=== PATIENT | female | born 1945 | race Caucasian/White ===

== ENCOUNTER 2021-01-11 18:33 | Emergency (ER) | payer MEDICARE, BC ==
[~2021-01-11] VITALS: Ht 167.6 cm; Wt 79.4 kg
[~2021-01-11 18:33] MED LIST: AZITHROMYCIN500 MG PO; PSEUDOEPHEDRINE60 MG PO
[2021-01-11] MEDS ORDERED: NAPROXEN500 MG PO (21:33)
== END 2021-01-11 22:05 | disposition home or self-care (01) ==
LOC: ED 18:33
DX: I80.01 Phlebitis and thrombophlebitis of superficial vessels of right lower extremity (principal); Z88.0 Allergy status to penicillin; Z88.5 Allergy status to narcotic agent
CPT/HCPCS: 93971; 99283-25

== ENCOUNTER 2021-06-17 12:28 | Emergency (ER) | payer MEDICARE, BC ==
[~2021-06-17] VITALS: Ht 167.6 cm; Wt 79.4 kg
[~2021-06-17 12:28] MED LIST changes: +NAPROXEN500 MG PO
--- NOTE | 2021-06-18 07:45 | EKG ---
[facility] [address] [place], [place] [address] Signed Normal sinus rhythm Inferior infarct , age undetermined Abnormal ECG No previous ECGs available Confirmed by DANAE GIBSON MD ([id number]) on 06/18/2021 7:45:26 AM Electronically Signed By: DANAE GIBSON MD 06/18/21 0745 PATIENT NAME: SOCORRO SOL Samra Electrocardiogram DATE OF : 43 PHYSICIAN: DANAE GIBSON MD REPORT #: [id number] REPORT IS CONFIDENTIAL AND NOT TO BE RELEASED WITHOUT AUTHORIZATION
== END 2021-06-17 17:53 | disposition home or self-care (01) ==
LOC: ED 12:28
DX: U07.1 COVID-19 (principal); Z23 Encounter for immunization; S82.831A Other fracture of upper and lower end of right fibula, initial encounter for closed fracture; W18.39XA Other fall on same level, initial encounter; F17.200 Nicotine dependence, unspecified, uncomplicated; Z88.0 Allergy status to penicillin; Z88.8 Allergy status to other drugs, medicaments and biological substances; Z88.5 Allergy status to narcotic agent
CPT/HCPCS: 71045; 73610; 80048; 85025; 93005; 93010; 96374; 99284-25; C9803; J2405; J7030; M0243; Q0244; U0003

== ENCOUNTER 2021-07-03 11:54 | Emergency (ER) | payer MEDICARE, BC ==
[~2021-07-03] VITALS: Ht 167.6 cm; Wt 95.7 kg
--- OUTSIDE RECORDS SUMMARY | 2021-07-03 12:02 | XMS ---
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 - 2 Visits in 30 Days CARE PROVIDERS KHADIJAH MOCK Student in an Organized Health Care [facility] Education/Training Program PHONE: [phone] Hu has no Care Guidelines for this patient. ERoslyn. VISIT COUNT (12 MO.) 3 [facility] TOTAL 3 NOTE: Visits indicate total known visits. ED/UCC VISIT TRACKING (12 MO.) 07/03/2021 11:55 [facility] [place] TYPE: Emergency COMPLAINT: - L ARM SWELLING 06/17/2021 12:29 [facility] [place] TYPE: Emergency COMPLAINT: - SYNCOPE DIAGNOSES: - Other fracture of upper and lower end of right fibula, initial encounter for closed fracture - Allergy status to narcotic agent - COVID-19 - Syncope and collapse - Other fall on same level, initial encounter - Allergy status to other drugs, medicaments and biological substances - Allergy status to penicillin - Nicotine dependence, unspecified, uncomplicated - Encounter for immunization 01/11/2021 18:34 [facility] [place] TYPE: Emergency COMPLAINT: - RT LEG PAIN/ NON INJURY DIAGNOSES: - Allergy status to narcotic agent - Phlebitis and thrombophlebitis of superficial vessels of right lower extremity - Allergy status to penicillin - Pain in right lower leg INPATIENT VISIT TRACKING (12 MO.) No inpatient visits to display in this time frame [email or web address]
[2021-07-03] MEDS ORDERED: ELIQUIS5 MG PO (18:22)
== END 2021-07-03 18:53 | disposition home or self-care (01) ==
LOC: ED 11:54
DX: I82.622 Acute embolism and thrombosis of deep veins of left upper extremity (principal); F17.200 Nicotine dependence, unspecified, uncomplicated; Z88.0 Allergy status to penicillin; Z88.5 Allergy status to narcotic agent; Z88.8 Allergy status to other drugs, medicaments and biological substances
CPT/HCPCS: 80048; 85025; 93971; 99284-25

== ENCOUNTER 2023-06-12 07:51 | Inpatient (IN) | payer MEDICARE, BC ==
[~2023-06-12] VITALS: Ht 167.6 cm; Wt 101.6 kg
[~2023-06-12 07:51] MED LIST changes: +ELIQUIS5 MG PO
--- OUTSIDE RECORDS SUMMARY | 2023-06-12 07:53 | XMS ---
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 Care History Medical/Surgical 07/10/2021 [facility] \R\- NO PCP LETTER SENT WITH CLINIC ONI Barakat VISIT COUNT (12 MO.) 1 [facility] H. TOTAL 1 NOTE: Visits indicate total known visits. ED/UCC VISIT TRACKING (12 MO.) 06/12/2023 07:51 [facility] [place] TYPE: Emergency COMPLAINT: - STROKE INPATIENT VISIT TRACKING (12 MO.) No inpatient visits to display in this time frame [email or web address]
[2023-06-12 08:05] LABS: BASOPHILS 1.8 % (0-2); EOSINOPHILS 1.7 % (0-6); HEMOGLOBIN 13.5 g/dL (12.0-18.0); LYMPHOCYTES 30.3 % (24-44); MCH 29.6 (27-36); MCHC 32.3 g/dl (30-36); MCV 91.8 fl (81-99); MONOCYTES 5.3 % (0-12); NEUTROPHILS 60.9 % (39-80); PLATELET COUNT 198 K/uL (140-440); RBC 4.57 M/ul (4.3-5.7); RDW 15.9 (10.5-15.0)
[2023-06-12 08:39] LABS: ALBUMIN 3.2 g/dL (3.4-5.0); ALBUMIN/GLOBULIN RATIO 0.84 (1.1-2.4); ANION GAP 15.4 (7-21); BILIRUBIN, TOTAL 0.3 ng/dL (0.2-1.0); BUN/CREATININE RATIO 8.77 (6.0-28.6); CALCIUM 8.9 mg/dL (8.5-10.1); CREATININE, SERUM 1.71 mg/dL (0.55-1.02); POTASSIUM 4.4 mmol/L (3.5-5.1)
[2023-06-12 11:33] VITALS: BP 171/88
--- NOTE | 2023-06-12 12:36 | NUR ---
PATIENT ADMISSION COMPLETE AND DOCUMENTED IN THE CHART. PATIENT WITH TWO FAMILY MEMBERS AT THE BEDSIDE. PATIENT LUNCH TRAY SET UP. PATIENT STATED NO FURTHER NEEDS AT THIS TIME. CALL LIGHT AND PERSONAL BELONGINGS ARE WITHIN REACH.
--- NOTE | 2023-06-12 13:39 | NUR ---
SPOKE TO PATIENT AND FAMILY ABOUT THE DISCHARGE PLAN. PATIENT LIVES WITH HER DAUGHTER AND HAS A GRANDSON WHO IS VERY HELPFUL WHEN NEEDED. PATIENT CAN DO HER OWN ADLS AND DOES NOT USE ANY DME. PATIENT HAS NO MONEY ISSUES. PATIENT IS ABLE TO GO UP STAIRS WITHOUT DIFFICULTIES. PATIENT COMPLAINS THAT HER LEFT HAND FEELS LIKE IT HAS SL. WEAKNESS. PATIENT HAS FRIENDS THAT ARE AVAILABLE TO HELP NEEDED. PATIENT DOES NOT WANT PLACEMENT AND DOES NOT NEED HELP AT HOME. STRUCTURAL STEEL WORKER HELPER WILL FOLLOW PATIENT'S PROGRESS AND THE NEED FOR CASE MANAGEMENT'S HELP.
[2023-06-12 14:44] VITALS: BP 167/72
--- NOTE | 2023-06-12 16:02 | NUR ---
PATIENT ORTHOSTATIC BLOOD PRESSURE COMPLETE AND DOCUMENTED IN THE CHART. NEURO CHECKS COMPLETE. PATIENT IS ALERT AND ORIENTED TIMES FOUR. LEFT SIDE LOWER EXTREMITY DRIFTS TO THE BED IMMEDIATELY AFTER LIFTING. LEFT UPPPER EXTREMITY WITH MINIMAL DRIFT BUT ABLE TO PULL BACK. PATIENT WORDS NOT SLURRED AND EASY TO UNDERSTAND. PATIENT STATED NO PAIN AT THIS TIME. LEFT AC REMOVED DUE THE PATIENT REPORTING PAIN. PATIENT WITH NO COMPLAINTS OF NAUSEA OR DIZZINESS. PATIENT WITH TWO FAMILY MEMBERS AT THE BEDSIDE. PATIENT AND FAMILY STATED NO FURTHER NEEDS AT THIS TIME. CALL LIGHT AND PERSONAL BELONGINGS ARE WITHIN REACH.
[2023-06-12] MEDS ORDERED: ALBUTEROL2.5 MG/3 M INH (16:46)
[2023-06-12] MEDS ORDERED: ALLEGRA ALLERG180 MG PO (17:03)
[2023-06-12] MEDS ORDERED: TYLENOL EXTRA500 MG PO (17:04)
[2023-06-12 17:42] VITALS: BP 142/99
--- NOTE | 2023-06-12 19:36 | NUR ---
REPORT RECEIVED FROM DAY SHIFT RN. PATIENT RESTING IN BED WITH EYES CLOSED. RESPIRATIONS EVEN AND UNLABORED. CALL LIGHT IN REACH.
[2023-06-12 19:51] VITALS: BP 150/88
--- NOTE | 2023-06-12 20:00 | NUR ---
CALL LIGHT ANSWERED. PATIENT UP TO BSC WITH 2P SBA AND FWW TO VOID. PATIENT BACK TO BED. VS AND I&Os OBTAINED AND RECORDED. ASSESSMENT COMPLETE. PATIENT REPORTS NO CURRENT PAIN. LUNG SOUNDS CLEAR BILAT. BOWEL TONES ACTIVE. PATIENT ABLE TO HOLD LEFT LEG UP FOR 8 SECONDS THEN DRIFTS. PATIENT ABLE TO HOLD LEFT ARM UP WITH SLIGHT DRIFT. GROUP UNDERWRITER STRENGTH EQUAL BILAT. PATIENT HAS NO FURTHER NEEDS. CALL LIGHT IN REACH. IV FLUSHED AND WNL.
--- NOTE | 2023-06-12 22:17 | NUR ---
PATIENT IN BED RESTING ON BACK WITH EYES CLOSED. RESPIRATIONS EVEN AND UNLABORED. CALL LIGHT IN REACH.
--- NOTE | 2023-06-12 22:29 | NUR ---
CALL LIGHT ANSWERED. PATIENT UP TO BSC WITH 2P SBA. PATIENT BACK TO BED. PATIENT HAS NO FURTHER NEEDS. CALL LIGHT IN REACH.
--- NOTE | 2023-06-13 00:23 | NUR ---
PATIENT IN BED RESTING ON BACK WATCHING TV. RESPIRATIONS EVEN AND UNLABORED. NO FURTHER NEEDS. CALL LIGHT IN REACH.
[2023-06-13 01:38] VITALS: BP 147/78
--- NOTE | 2023-06-13 01:40 | NUR ---
CALL LIGHT ANSWERED. PATIENT UP TO BSC WITH 2PA TO VOID. PATIENT BACK TO BED. VS AND I&Os OBTAINED AND RECORDED. ASSESSMENT COMPLETE. NEURO CHECK COMPLETE, SEE ASSESSMENT. PATIENT HAS NO FURTHER NEEDS. CALL LIGHT IN REACH.
[2023-06-13 05:18] LABS: BASOPHILS 0.7 % (0-2); EOSINOPHILS 0.1 % (0-6); HEMATOCRIT 42.4 % (35.0-50.0); HEMOGLOBIN 13.8 g/dL (12.0-18.0); LYMPHOCYTES 9.6 % (24-44); MCH 29.6 (27-36); MCHC 32.5 g/dl (30-36); MCV 91.2 fl (81-99); MONOCYTES 6.4 % (0-12); NEUTROPHILS 83.2 % (39-80); PLATELET COUNT 221 K/uL (140-440); RBC 4.65 M/ul (4.3-5.7); RDW 16.1 (10.5-15.0)
[2023-06-13 05:25] LABS: ANION GAP 16.1 (7-21); BUN/CREATININE RATIO 12.12 (6.0-28.6); CALCIUM 9.3 mg/dL (8.5-10.1); CREATININE, SERUM 1.65 mg/dL (0.55-1.02); POTASSIUM 4.1 mmol/L (3.5-5.1)
[2023-06-13 05:29] VITALS: BP 174/85
[2023-06-13 05:30] LABS: CHOLESTEROL/HDL RATIO 3.8
--- NOTE | 2023-06-13 05:31 | NUR ---
PT IN BED RESTING EYES CLOSED. VS OBTAINED. PT DENIES PX. STATES SHE HAS MORE FEELING/LESS NUMBNESS TO LT FOOT, LEG AND LT FINGERS. PT DENIES FURTHER NEEDS AT THIS TIME
--- NOTE | 2023-06-13 06:29 | NUR ---
CALL LIGHT ANSWERED. PATIENT UP TO BSC WITH MAX 2P SBA. PATIENT BACK TO BED. FRESH WATER PROVIDED. PATIENT HAS NO FURTHER NEEDS. CALL LIGHT IN REACH.
--- NOTE | 2023-06-13 07:24 | NUR ---
REPORT RECIEVED FROM BLANKET INSPECTOR TRENT ALMARAZ. PATIENT IS RESTING IN BED WITH EYES CLOSED. RESPIRATIONS ARE EVEN AND UNLABORED. CALL LIGHT AND PERSONAL BELONGINGS ARE WITHIN REACH.
--- NOTE | 2023-06-13 08:06 | NUR ---
SPOKE TO PATIENT ABOUT THE DISCHARGE PLAN. PATIENT DOES NOT WANT SNF AT THIS TIME. ALSO PATIENT DOES NOT THINK SHE NEEDS A WALKER. SPOKE WITH PATIENT ADOUT HELP AT HOME AND PATIENT STATES THAT HER DAUGHTER LIVES WITH HER AND WILL HELP WITH WHAT EVER THE PATIENT NEEDS. SLIPMAN WILL FOLLOW PATIENT CLOSELY TO MAKE SURE THAT PATIENT HAS A SAFE DISCHARGE. PATIENT STILL HAS MILD WEAKNESS IN HER LEFT LEG AND ARM. PATIENT IS NOT HAVING DIZZINESS AT THIS TIME AND IS FEELING BETTER THIS AM THAN YESTERDAY.
--- NOTE | 2023-06-13 08:40 | NUR ---
PATIENT 0800 AND 0900 MEDICATIONS ADMINISTERED PER THE EMAR. PATIENT FULL ASSESSMENT COMPLETE AND DOCUMENTED IN THE CHART. PATIENT STATED NO PAIN AT THIS TIME. PATIENT IS ALERT AND ORIENTED TIMES FOUR. MINIMAL DRIFT OF THE LEFT ARM AND LEFT LEG. PATIENT STATED THE LEFT SIDE OF THE BODY FEELS MORE DULL THAN THE RIGHT SIDE. PATIENT LUNG SOUNDS ARE CLEAR BILATERALLY IN ALL LUNG CARRION. HR IRREGULAR. RADIAL AND PEDAL PULSES ARE STRONG BILATERALLY. CAPILLARY REFILL IN THE UPPER AND LOWER EXTREMITIES IS LESS THAN 3 SECONDS. PATIENT BREAKFAST TRAY SET UP FOR THE PATIENT. IV SITE FLUSHED WELL WITH 10 ML NORMAL SALINE AND NO PAIN. DRESSING IS CLEAN, DRY, AND INTACT. PATIENT STATED NO FURTHER NEEDS AT THIS TIME. CALL LIGHT AND PERSONAL BELONGINGS ARE WITHIN REACH.
[2023-06-13 09:31] VITALS: BP 135/71
--- NOTE | 2023-06-13 10:57 | NUR ---
TALKED TO PT AND A SAFE DISCHARGE WOULD BE TO DISCHARGED TO SNF FOR REHAB. PATIENT IS OK ABOUT GOING TO SNF. PATIENT WILL GO TO [place] BECAUSE PATIENT'S GRANDSON WORKS AT [facility]. REFERRAL SENT TO [place].
--- NOTE | 2023-06-13 11:05 | NUR ---
PATIENT USED BEDSDIE COMMODE WITH TWO PERSON ASSIST AND A FRONT WHEELED WALKER. PATIENT THEN LAYING BACK IN BED AND RECEIVED THE ENOXAPARIN INJECTIONE. PATIENT DAUGHTER AT THE BEDSIDE. PATIENT STATED NO FURTHER NEEDS AT THIS TIME. CALL LIGHT AND PERSONAL BELONGINGS ARE WITHIN REACH.
--- NOTE | 2023-06-13 11:19 | NUR ---
UR NOTE MCG STROKE: ISCHEMIC (ISC) 06/12/23 MET CLINICAL INDICATIONS FOR ADMISSION TO INPATIENT CARE GL DAY 1
--- NOTE | 2023-06-13 14:01 | NUR ---
MS HOBSON. PT AND DAUGHTER EXHIBITED STRON EMOTIONAL AND RELATIONAL RESOURCES AND VERY LITTLE DSITRESS. RESPONSES TO SITUATION WERE CONGRUENT. PROVIDED SUPPORTIVE PRESENCE; FACILITATED STORY-TELLING AND PROCESSING OF SITUATION; PT AND DAUGHTER EXPRESSED HOPE. NO FOLLOW UP REQURIED AT THIS TIME.
[2023-06-13 14:32] VITALS: BP 131/71
[2023-06-13 17:48] VITALS: BP 151/71
--- NOTE | 2023-06-13 19:15 | NUR ---
REPORT RECIEVED FROM GISEL NEWMAN. BOARD UPDATED. pt RESTING IN THE BED. pt DENIES ANY NEEDS AT THIS TIME. CALL LIGHT WITHIN REACH.
--- NOTE | 2023-06-13 20:49 | NUR ---
used call light, up to BSC, 2PA/FWW, slightly unsteady, voided, back to bed, continues to need safety cuing on return. sammie own oral care at this time
--- NOTE | 2023-06-13 20:55 | NUR ---
pt is finished with oral cares, supplies tidied up for pt, no further needs at this time
[2023-06-13 21:12] VITALS: BP 160/88
--- NOTE | 2023-06-13 21:30 | NUR ---
ASSESSMENT AND VITAL SIGNS DONE. PURE WICK PLACED. A&O X4. NO NUMBNESS OR TINGLING. NO FACIAL DROOP. WATER REFRESHED. PURNIMA CARE DONE. pt DENIES ANY NEEDS AT THIS TIME. CALL LIGHT WITH IN REACH.
--- NOTE | 2023-06-13 23:51 | NUR ---
pt RESTING IN THE BED WITH EYES CLOSED. RR EVEN AND UNLABORED. NO S/SX OF OBVIOUS DISTRESS. CALL LIGHT WIHIN REACH.
--- NOTE | 2023-06-14 02:21 | NUR ---
pt RESTING IN BED WITH EYES CLOSED. PURE WICK IN PLACE. RR EVEN AND UNLABORED. NO S/SX OF OBVIOUS DISTRESS. CALL LIGHT WITHIN REACH.
--- NOTE | 2023-06-14 04:25 | NUR ---
pt IN BED RESTING WITH EYES CLOSED. PURE WICK IN PLACE. RR EVEN AND UNLABORED. NO S/SX OF OBVIOUS DISTRESS NOTED. CALL LIGHT WITHIN REACH.
[2023-06-14 05:36] VITALS: BP 149/79
[2023-06-14 05:43] LABS: BASOPHILS 0.8 % (0-2); EOSINOPHILS 0.5 % (0-6); HEMOGLOBIN 13.5 g/dL (12.0-18.0); MCH 29.5 (27-36); MCHC 32.2 g/dl (30-36); MCV 91.7 fl (81-99); MONOCYTES 8.9 % (0-12); NEUTROPHILS 66.8 % (39-80); PLATELET COUNT 200 K/uL (140-440); RBC 4.58 M/ul (4.3-5.7); RDW 16.2 (10.5-15.0)
[2023-06-14 06:04] LABS: ALBUMIN/GLOBULIN RATIO 0.88 (1.1-2.4); ANION GAP 13.1 (7-21); BILIRUBIN, TOTAL 0.4 ng/dL (0.2-1.0); BUN/CREATININE RATIO 15.78 (6.0-28.6); CALCIUM 8.7 mg/dL (8.5-10.1); CREATININE, SERUM 1.71 mg/dL (0.55-1.02); POTASSIUM 4.1 mmol/L (3.5-5.1); PROTEIN, TOTAL 6.4 g/dL (6.4-8.2)
--- NOTE | 2023-06-14 06:13 | NUR ---
ASSESSMENT AND VITAL SIGNS DONE. PURE WICK REMOVED. pt A&0 X4. pt HAS LEFT SIDED TINGLING IN HER ARM AND LEG AND MINIMAL DRIFT OF LEFT LEG. NO OTHER NEEDS AT THIS TIME. CALL LIGHT WITHIN REACH.
--- NOTE | 2023-06-14 06:46 | EKG ---
[facility] [address] [place] [address] Signed sinus rhythm with frequent pvc Right bundle branch block Abnormal ECG When compared with ECG of 17-JUN-2021 12:51, compared to previous, RBBB and pvc's now present Confirmed by TANJA TIRADO MD ([id number]) on 06/14/2023 6:46:27 AM Electronically Signed By: TANJA TIRADO 06/14/23 0646 PATIENT NAME: SOCORRO SOL SEBLE Electrocardiogram DATE OF : 43 PHYSICIAN: TANJA TIRADO REPORT #: [id number] REPORT IS CONFIDENTIAL AND NOT TO BE RELEASED WITHOUT AUTHORIZATION
--- NOTE | 2023-06-14 07:05 | NUR ---
VIDEO PRESENTATION OPERATOR WILL SEND UPDATES TO [facility]. PATIENT LIVES WITH DAUGHTER AND DAUGHTER FEELS LIKE SHE CANNOT TAKE CARE OF MOTHER AT THIS TIME.WILL EXPLORE THIS ISSUE MORE TODAY WHEN DARIUS COMES TO THE HOSPITAL TO VISIT. [facility] IS PATIENT'S CHOICE OF SNF BECAUSE GRANDSON WORKS AT [facility].
--- NOTE | 2023-06-14 08:05 | NUR ---
PATIENT 0800 AND 0900 MEDICATIONS ADMINISTERED PER THE EMAR. PATIENT EXPRESSED UNDERSTANDING ABOUT THE MEDICATIONS SHE IS TAKING AT THE HOSPITAL. PATIENT DAUGHTER AT THE BEDSIDE. FULL ASSESSMENT COMPLETE AND DOCUMENTED IN THE CHART. PATIENT LUNG SOUNDS ARE CLEAR BILATERALLY IN ALL LUNG CARRION. PATIENT ON ROOM AIR. HEART SOUNDS IRREGULAR. RADIAL AND PEDAL PULSES ARE STRONG BILATERALLY. CAPILLARY REFILL IN THE UPPER AND LOWER EXTREMITIES IS LESS THAN 3 SECONDS BILATERALLY. BOWEL TONES ARE ACTIVE IN ALL FOUR QUADRANTS. PATIENT ATE ABOUT 25% OF BREAKFAST. PUREWICK USED ONLY AT NIGHT. PUREWICK NOT IN PLACE. BILATERAL SHINS ARE DANG AND DRY. PATIENT LAST BOWEL MOVEMENT WAS ON 06/12/23. PATIENT IS ALERT AND ORIENTED TIMES FOUR. LEFT ARM AND LEFT LEG DRIFT MINIMAL. PATIENT IS SITTING UPRIGHT IN THE RECLINER. PATIENT AND FAMILY STATED NO FURTHER NEEDS AT THIS TIME. CALL LIGHT AND PERSONAL BELONGINGS ARE WITHIN REACH.
[2023-06-14 09:06] VITALS: BP 128/59
--- NOTE | 2023-06-14 10:01 | NUR ---
MS ROUNDS. NO VISIT. PHYSICAL THERAPY IN WITH PATIENT. PROVIDED SILENT PRAYER.
--- NOTE | 2023-06-14 10:50 | NUR ---
PATIENT IS SITTING UPRIGHT IN BED WITH EYES CLSOED AND RESPIRATIONS ARE EVEN AND UNLABORED. CALL LIGHT AND PERSONAL BELONGINGS ARE WITHIN REACH.
--- NOTE | 2023-06-14 12:38 | NUR ---
WENT INTO PATIENTS ROOM TO HELP PATIENT TO THE BEDSIDE COMMODDE. WHEN PATIENT SAT ON THE EDGE OF THE BED, PATIENT STATED FEELING WEIRD AND "FOGGED IN ". PATIENT REMAINED SITTING AT THE EDGE OF THE BED. VITAL SIGNS TAKEN AND WERE STABLE. TOLD PAATIENT TO TAKE DEEP BREATHS. PATIENT THEN STATED SAID [facility] AND TWO PERSON ASSIST. PATIENT VOIDED 100 ML YELLOW URINE. PATIENT GOT BACK TO BED AND STATED THE LEFT SIDE OF HER FACE FEELS NUMB. NEURO ASSESSMENT COMPLETE AND NO NEW DEFICITS NOTED. PATIENT NOW SITTING UPRIGHT IN BED WITH HER DAUGHTER AT THE BEDSIDE. CHARGE NURSE AND NOTIFIED.
--- NOTE | 2023-06-14 13:03 | NUR ---
UR NOTE MCG STROKE: ISCHEMIC (ISC) 06/13/23 VARIANCE GL DAY 2 06/14/23 MET GL DAY 2
[2023-06-14 13:10] VITALS: BP 126/60
--- NOTE | 2023-06-14 13:37 | NUR ---
SPOKE TO VICKIE AT [facility] AND PATIENT WILL GO TO [facility] SATURDAY. PATIENT AND DAUGHTER UPDATED ON THE DISCHARGE PLAN.PATIENT'S DAUGHTER REMAINS AT BEDSIDE AND IS VERY HELPFUL TO HER MOTHER.
--- NOTE | 2023-06-14 15:32 | NUR ---
Wheelchair Van scheduled for 06/15/23 at 1030 to take patient from hospital to [facility].
--- NOTE | 2023-06-14 15:32 | NUR ---
SPOKE TO THE PATIENT ABOUT THE DISCHARGE PLAN. PATIENT WILL BE DISCHARGED TO [facility] IN THE AM FOR SNF/REHAB.
[2023-06-14] MEDS ORDERED: CLOPIDOGREL75 MG PO (15:41)
--- NOTE | 2023-06-14 15:41 | NUR ---
Patient notified wheelchair van will arrive at 1030 to transport her to [facility].
[2023-06-14] MEDS ORDERED: LOSARTAN POTASS25 MG PO (15:42)
[2023-06-14] MEDS ORDERED: ATORVASTATIN CA20 MG PO (15:42)
[2023-06-14] MEDS ORDERED: ASPIRIN81 MG PO (15:43)
--- NOTE | 2023-06-14 15:45 | NUR ---
PATIENT AMBULATED TO THE BATHROOM WITH FWW AND TWO PERSON ASSIST. PATIENT TOLERATED WELL AND MADE IT BACK TO BED. PATIENT STATED NO PAIN AT THIS TIME. PATIENT WITH NUMBNESS IN THE LEFT SIDE OF THE FACE. PATIENTS LEFT ARM AND LEFT LEG ARE TINGLING. PATIENTS FACE SYMMETRICAL WHEN SMILING, RAISING EYEBROWS, PUFFING OUT THE CHEEKS, AND STICKING OUT THE TONGUE. PATIENT WITH WEAKNESS IN THE LEFT ARM AND LEG. PATIENT IS ALERT AND ORIENTED TIMES FOUR. PATIENT DAUGHTER IS AT THE BEDSIDE. PATIENT AND FIGURE SKATER WENT OVER THE DISCHARGE PLAN OF CARE. PATIENT AND FAMILY STATED NO FURTHER NEEDS AT THIS TIME. CALL LIGHT AND PERSONAL BELONGINGS ARE WITHIN REACH.
[2023-06-14 17:46] VITALS: BP 142/55
[2023-06-14 20:57] VITALS: BP 129/65
--- NOTE | 2023-06-14 21:17 | NUR ---
AWAKE, ALERT AND ORIENTED, ROOM AIR, SITTING UP IN BED, WATCHING TV. DENIES CP OR ANY KIND OF PAIN. BRUISED ARMS HEALING, FATTY TUMORS ON ARMR NO CHANGES, SL RAC PATENT. CONT TO BE WEAK LE. 2PA/FWW, PT AWARE MUST WALK TO BRP TO INCREASE STAMINE. TOLERATING LIQUIDS WELL. NO REQUESTS
--- NOTE | 2023-06-14 22:00 | NUR ---
in to assist pt to the toilet, back to bed, sba fww, call light in reach
--- NOTE | 2023-06-14 22:26 | NUR ---
UP TO BSC WITH PREVENTATIVE MAINTENANCE TECHNICIAN. 1PA/FWW EARLIER, VOIDED, BACK TO BED, TOLERATED WELL. NO C/O PAIN, CP OR SOB
--- NOTE | 2023-06-15 00:04 | NUR ---
RESTING, EYES CLOSED, NO DISTRESS, HOB ELEVATED, CALL LIGHT AND FLUIDS AT HANDS REACH.
--- NOTE | 2023-06-15 02:12 | NUR ---
RESTING, NO S/SX DISTRESS, EYES CLOSED, REPOSITIONS SELF IN BED. CALL LIGHT AT HANDS REACH
--- NOTE | 2023-06-15 04:06 | NUR ---
resting eyes closed, no distress, reposition self in bed. call light and fluids at hands reach
[2023-06-15 05:44] VITALS: BP 147/69
--- NOTE | 2023-06-15 06:08 | NUR ---
Pt awake, no c/o pain CP or SOB this shift. redness of arms no changes. SL patent. has a bm 06/14/23. tolerating small amount of fluids. voiding small amounts of medium colored yellow urine. 1-2PA/FWW slow unsteady gait to BRP. received several reminders about proper FWW use. semireceptive. Pleasant and cooperative. may be dc'd to SNF for further conditioning rehab.
--- NOTE | 2023-06-15 07:48 | NUR ---
PT UP FROM BED INTO RESTROOM WITH FWW AND 2 PERSON ASSIST. PT TOLERATED WELL. TO RECLINER. DENIES FURTHER NEEDS AT THIS TIME. CALL LIGHT IN REACH. DAUGHTER AT BEDSIDE.
[2023-06-15 09:22] VITALS: BP 116/66
--- NOTE | 2023-06-15 09:55 | NUR ---
MORNING ASSESSMENT COMPLETE. PT ASSISTED FROM CHAIR TO RESTROOM AND TO BED. NEURO CHECK COMPELTE. WEAKNESS AND TINGLING NOTED TO LEFT UPPER AND LOWER EXTREMITIES. NO DRIFT NOTED TO EITHER UPPER OR LOWER EXTREMITIES. PT ALERT AND ORIENTED x4. PERRLA NOTED. DISCUSSED DISCHARGE PLAN. PT DENIES FURTHER NEEDS AT THIS TIME. CALL LIGHT IN REACH AND DAUGHTER AT BEDSIDE.
== END 2023-06-15 10:30 | DRG 66 ==
LOC: ED 07:51 → MS 10:18
PROVIDERS: Emergency Medicine; ADMIT Family Medicine; ATTEND Family Medicine
DX: I63.9 Cerebral infarction, unspecified (principal); R74.8 Abnormal levels of other serum enzymes; I49.3 Ventricular premature depolarization; F17.210 Nicotine dependence, cigarettes, uncomplicated; R20.0 Anesthesia of skin; I45.10 Unspecified right bundle-branch block; I10 Essential (primary) hypertension; R29.701 NIHSS score 1; Z90.89 Acquired absence of other organs; Z86.718 Personal history of other venous thrombosis and embolism; Z90.49 Acquired absence of other specified parts of digestive tract; Z98.890 Other specified postprocedural states; Z90.710 Acquired absence of both cervix and uterus; Z88.5 Allergy status to narcotic agent; Z88.0 Allergy status to penicillin; Z91.041 Radiographic dye allergy status
CPT/HCPCS: 36415; 70450; 70496; 70498; 70551; 80048; 80053; 80061; 83036; 83735; 85025; 93005; 93010; 93306; 96375; 97110; 97162; 97165; 97530; 97535; 99285-25; A9270; J1200; J1650; J2930; Q9967